=== PATIENT | male | born 1960 | race Caucasian/White ===

== ENCOUNTER → 2020-02-11 14:06 | Outpatient (CLI) | payer OTHER, SELFPAY ==
[2020-02-13 10:14] LABS: Covid-19 Nasal PCR Sendout UK Not Detected
== END ==
PROVIDERS: PCP Internal Medicine; Visit Provider Physician Assistant Medical
DX: Z20.828 Contact with and (suspected) exposure to other viral communicable diseases (principal)
CPT/HCPCS: U0003